=== PATIENT | male | born 1960 | race Caucasian/White ===

== ENCOUNTER 2018-09-28 00:27 | Emergency (ER) | payer OTHER ==
[~2018-09-28] VITALS: Ht 175.3 cm; Wt 86.2 kg
[2018-09-28] MEDS ORDERED: CEFUROXIME500 MG PO (01:09)
[2018-09-28] MEDS ORDERED: KETO10TA2 PO (01:09)
== END 2018-09-28 01:22 ==
LOC: ER 00:27
DX: H60.8X2 Other otitis externa, left ear (principal)

== ENCOUNTER 2021-07-21 08:40 | Outpatient (CLI) | payer OTHER ==
[~2021-07-21 08:40] MED LIST: CEFUROXIME500 MG PO; KETO10TA2 PO
== END 2021-07-21 09:00 | disposition home or self-care (01) ==
LOC: PPH VACUNA 08:40
PROVIDERS: ATTEND Emergency Medicine Pediatric Emergency Medicine
DX: Z23 Encounter for immunization (principal)